=== PATIENT | male | born 1970 ===

== ENCOUNTER 2018-05-04 07:29 | Inpatient (IN) | payer OTHER ==
[2018-05-04] MEDS ORDERED: Sodium Chloride 0.9% 500 ML IV STA (08:27)
--- NOTE | 2018-05-04 08:30 | ED PDOC ---
HPI: Back Time Seen by Provider: 05/04/18 07:32 Chief Complaint (Nursing): Back Pain Chief Complaint (Provider): Back pain History Per: Patient History/Exam Limitations: no limitations Onset/Duration Of Symptoms: Days (weeks) Additional Complaint(s): Pt. with upper back pain. Not getting better so came to the ER for further evaluation. Pt. has no numbness, tingles. Has no abd pain. Past Medical History Reviewed: Nursing Documentation, Vital Signs Vital Signs: Last Vital Signs Temp 97.9 F 05/04/18 07:34 Pulse 66 05/04/18 07:34 Resp 16 05/04/18 07:34 BP 113/69 05/04/18 07:34 Pulse Ox 99 05/04/18 07:34 - Medical History PMH: Anxiety, Back Problems - Surgical History Surgical History: Back Surgery - Family History Family History: States: Unknown Family Hx - Allergies Allergies/Adverse Reactions: Allergies Allergy/AdvReac Type Severity Reaction Status Date / Time No Known Allergies Allergy Verified 05/04/18 07:46 Review of Systems ROS Statement: Except As Marked, All Systems Reviewed And Found Negative Musculoskeletal: Positive for: Back Pain Physical Exam - Reviewed Nursing Documentation Reviewed: Yes Vital Signs Reviewed: Yes - Physical Exam Appears: Positive for: Non-toxic, No Acute Distress Head Exam: Positive for: ATRAUMATIC, NORMAL INSPECTION, NORMOCEPHALIC Skin: Positive for: Normal Color, Warm, DRY Eye Exam: Positive for: EOMI, Normal appearance, PERRL ENT: Positive for: Normal ENT Inspection Neck: Positive for: Normal, Painless ROM Cardiovascular/Chest: Positive for: Regular Rate, Rhythm Respiratory: Positive for: CNT, Normal Breath Sounds Gastrointestinal/Abdominal: Positive for: Normal Exam, Soft. Negative for: Tenderness Back: Positive for: Other (upper and mid back tender pulp drier mild). Negative for: L CVA Tenderness, R CVA Tenderness Extremity: Positive for: Normal ROM Neurologic/Psych: Positive for: Alert, Oriented - ECG O2 Sat by Pulse Oximetry: 99 Pulse Ox Interpretation: Normal - Progress ED Course And Treament: 832: Spoke with Dr. Ponce. Will admit. Stable. Disposition - Clinical Impression Clinical Impression: Back pain - Patient ED Disposition Is Patient to be Admitted: Yes - Disposition Disposition Time: 08:33 Condition: FAIR - Pt Status Changed To: Hospital Disposition Of: Inpatient - Admit Certification Admit to Inpatient:: After my assessment, the patient will require hospitalization for at least two midnights. This is because of the severity of symptoms shown, intensity of services needed, and/or the medical risk in this patient being treated as an outpatient. - POA Present On Arrival: None
[2018-05-04 09:22] LABS: BASO % 0.7 % (0.0-2.0); EOS # 0.1 K/uL (0.0-0.7); EOS % 2.8 % (0.0-4.0); HEMOGLOBIN 12.1 g/dL (12.0-18.0); LYMPH # 1.4 K/uL (1.0-4.3); LYMPH % 34.1 % (20.0-40.0); MEAN CELL VOLUME 94.9 fl (80.0-94.0); MEAN CORPUSCULAR HEMOGLOBIN 31.8 pg (27.0-31.0); MEAN CORPUSCULAR HGB CONC 33.5 g/dL (33.0-37.0); MEAN PLATELET VOLUME 8.7 fl (7.2-11.7); MONO # 0.4 K/uL (0.0-0.8); MONO % 9.8 % (0.0-10.0); NEUT # 2.2 K/uL (1.8-7.0); NEUT % 52.6 % (50.0-75.0); NRBC % 0.1 % (0.0-0.0); RBC 3.81 Mil/uL (4.40-5.90); RED CELL DISTRIBUTION WIDTH 13.7 % (11.5-14.5); WHITE BLOOD COUNT 4.2 K/uL (4.8-10.8)
[2018-05-04 09:28] LABS: ALB/GLOB RATIO 1.5 (1.0-2.1); ALBUMIN 4.1 g/dL (3.5-5.0); ALT/SGPT 22 U/L (21-72); AST/SGOT 14 U/L (17-59); BLOOD UREA NITROGEN 8 mg/dl (9-20); CALCIUM 8.9 mg/dL (8.4-10.2); GFR NON-AFRICAN AMERICAN > 60
[2018-05-04 10:35] LABS: PARTIAL THROMBOPLASTIN TIME 32.5 Seconds (25.6-37.1); PROTHROMBIN TIME 11.5 Seconds (9.8-13.1)
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
--- NOTE | 2018-05-04 12:57 | RAD ---
Date of service: 05/04/2018 HISTORY: Back pain COMPARISON: No prior. FINDINGS: LUNGS: No active pulmonary disease. PLEURA: No significant pleural effusion identified, no pneumothorax apparent. CARDIOVASCULAR: No atherosclerotic calcification present Normal. OSSEOUS STRUCTURES: No significant abnormalities. VISUALIZED UPPER ABDOMEN: Normal. OTHER FINDINGS: None. IMPRESSION: No active disease.
[2018-05-04] MEDS: Oxycodone/Acetaminophen 5/325 mg Tab PO PRN ×2 (18:04→22:48)
--- NOTE | 2018-05-04 20:30 | CP.PCM.CON ---
History of Present Illness - History of Present Illness History of Present Illness: I was asked to evaluate patient by Dr Ponce. Patient is a 47 year old male with HTN CAd with stent palcement in 2015 who has spinal stenosis. he presents for back surgery. He denies chest pain or dyspnea. Review of Systems - Constitutional Constitutional: absent: As Per HPI, Anorexia, Chills, Daytime Sleepiness, Excessive Sweating, Fatigue, Fever, Frequent Falls, Headache, Increased Appetite, Lethargy, Malaise, Night Sweats, Snoring, Sleep Apnea, Weight Gain, Weight Loss, Weakness, Other - EENT Eyes: absent: As Per HPI, Blind Spots, Blurred Vision, Change in Vision, Decreased Night Vision, Diplopia, Discharge, Dry Eye, Exophthalmos, Floaters, Irritation, Itchy Eyes, Loss of Peripheral Vision, Pain, Photophobia, Requires Corrective Lenses, Sees Flashes, Spots in Vision, Tunnel Vision, Other Visual Disturbances, Loss of Vision, Other Ears: absent: As Per HPI, Decreased Hearing, Ear Discharge, Ear Pain, Tinnitus, Abnormal Hearing, Disequilibrium, Dizziness, Other Nose/Mouth/Throat: absent: As Per HPI, Epistaxis, Nasal Congestion, Nasal Discharge, Nasal Obstruction, Nasal Trauma, Nose Pain, Post Nasal Drip, Sinus Pain, Sinus Pressure, Bleeding Gums, Change in Voice, Dental Pain, Dry Mouth, Dysphagia, Halitosis, Hoarsness, Lip Swelling, Mouth Lesions, Mouth Pain, Odynophagia, Sore Throat, Throat Swelling, Tongue Swelling, Facial Pain, Neck Pain, Neck Mass, Other - Cardiovascular Cardiovascular: absent: As Per HPI, Acrocyanosis, Chest Pain, Chest Pain at Rest, Chest Pain with Activity, Claudication, Diaphoresis, Dyspnea, Dyspnea on Exertion, Edema, Irregular Heart Rhythm, Pain Radiating to Arm/Neck/Jaw, Leg Edema, Leg Ulcers, Lightheadedness, Orthopnea, Palpitations, Paroxysmal Nocturnal Dyspnea, Pedal Edema, Radiating Pain, Rapid Heart Rate, Slow Heart Rate, Syncope, Other - Respiratory Respiratory: absent: As Per HPI, Cough, Dyspnea, Hemoptysis, Dyspnea on Exertion, Wheezing, Snoring, Stridor, Pain on Inspiration, Chest Congestion, Excessive Mucous Production, Change in Mucous Color, Pain with Coughing, Other - Gastrointestinal Gastrointestinal: absent: As Per HPI, Abdominal Pain, Belching, Bloating, Change in Bowel Habits, Change in Stool Character, Coffee Ground Emesis, Constipation, Cramping, Diarrhea, Dyspepsia, Dysphagia, Early Satiety, Excessive Flatus, Fecal Incontinence, Heartburn, Hematemesis, Hematochezia, Loose Stools, Melena, Nausea, Odynophagia, Temesmus, Vomiting, Other - Genitourinary Genitourinary: absent: As Per HPI, Change in Urinary Stream, Difficulty Urinat ing, Dysuria, Flank Pain, Hematuria, Pyuria, Nocturia, Urinary Incontinence, Urinary Frequency, Urinary Hesitance, Urinary Urgency, Voiding Freq/Small Amts, Freq UTI, Hx Renal/Bladder Calculi, Hx /Renal Surgery, Bladder Distension, Other - Musculoskeletal Musculoskeletal: Back Pain - Integumentary Integumentary: absent: As Per HPI, Acne, Alopecia, Bleeding Lesions, Change in Hair, Change in Nails, Change in Pigmentation, Changing Lesions, Dry Skin, Erythema, Furuncle, Hirsutism, Lesions, New Lesions, Non-Healing Lesions, Photosensitivity, Pruritus, Rash, Skin Pain, Skin Ulcer, Sores, Striae, Swelling, Unusual Bruising, Wounds, Jaundice, Other - Neurological Neurological: absent: As Per HPI, Abnormal Gait, Abnormal Hearing, Abnormal Movements, Abnormal Speech, Behavioral Changes, Burning Sensations, Confusion, Convulsions, Disequilibrium, Dizziness, Numbness, Focal Weakness, Frequent Falls, Headaches, Lack of Coordination, Loss of Vision, Memory Loss, Paresthesias, Radicular Pain, Restless Legs, Sensory Deficit, Syncope, Tingling, Tremor, Vertigo, Weakness, Other Visual Disturbances, Other - Psychiatric Psychiatric: absent: As Per HPI, Abnormal Sleep Pattern, Anhedonia, Anxiety, Auditory Hallucinations, Behavioral Changes, Change in Appetite, Change in Libido, Confusion, Depression, Difficulty Concentrating, Hallucinations, Homicidal Ideation, Hopelessness, Irritability, Memory Loss, Mood Swings, Panic Attacks, Paranoia, Suicidal Ideation, Visual Hallucinations, Tactile Hallucinations, Other - Endocrine Endocrine: absent: As Per HPI, Change in Body Appearance, Change in Libido, Cold Intolorance, Deepening of Voice, Excessive Sweating, Fatigue, Flushing, Heat Intolorance, Increase in Ring/Shoe/Hat Size, Palpitations, Polydipsia, Polyphagia, Polyuria, Other - Hematologic/Lymphatic Hematologic: absent: As Per HPI, Easy Bleeding, Easy Bruising, Lymphadenopathy, Other Past Patient History - Infectious Disease Hx of Infectious Diseases: None - Past Social History Smoking Status: Never Smoked - CARDIAC Hx Cardiac Disorders: Yes - MUSCULOSKELETAL/RHEUMATOLOGICAL Hx Musculoskeletal Disorders: Yes - PSYCHIATRIC Hx Psychophysiologic Disorder: Yes - SURGICAL HISTORY Hx Orthopedic Surgery: Yes Other/Comment: 2 stents, rt. ankle sx. w/ screws - ANESTHESIA Hx Anesthesia: Yes Hx Anesthesia Reactions: No Hx Malignant Hyperthermia: No Has any member of the family had a problem w/ anesthesia?: No Meds Allergies/Adverse Reactions: Allergies Allergy/AdvReac Type Severity Reaction Status Date / Time No Known Allergies Allergy Verified 05/04/18 07:46 - Medications Medications: Current Medications Acetaminophen (Tylenol 325mg Tab) 650 mg PO Q6 PRN PRN Reason: Pain, Mild (1-3) Clonazepam (Klonopin) 2 mg PO BID EUN Last Admin: 05/04/18 18:02 Dose: 2 mg Ketorolac Tromethamine (Toradol) 30 mg IVP Q6 PRN PRN Reason: Pain, moderate (4-7) Last Admin: 05/04/18 14:28 Dose: 30 mg Lorazepam (Ativan) 1 mg IVP ONCE PRN PRN Reason: Anxiety Last Admin: 05/04/18 14:25 Dose: 1 mg Oxycodone/Acetaminophen (Percocet 5/325 Mg Tab) 1 tab PO Q4 PRN PRN Reason: Pain, severe (8-10) Stop: 05/07/18 12:53 Last Admin: 05/04/18 18:04 Dose: 1 tab Physical Exam - Constitutional Appears: Non-toxic - Head Exam Head Exam: NORMAL INSPECTION - Eye Exam Eye Exam: Normal appearance - ENT Exam ENT Exam: Mucous Membranes Moist - Neck Exam Neck exam: Positive for: Full Rom - Respiratory Exam Respiratory Exam: NORMAL BREATHING PATTERN - Cardiovascular Exam Cardiovascular Exam: REGULAR RHYTHM - GI/Abdominal Exam GI & Abdominal Exam: Normal Bowel Sounds - Rectal Exam Rectal Exam: Deferred - Extremities Exam Extremities exam: Negative for: pedal edema - Back Exam Back exam: NORMAL INSPECTION - Neurological Exam Neurological exam: Alert, Oriented x3 - Psychiatric Exam Psychiatric exam: Normal Affect - Skin Skin Exam: Normal Color Results - Vital Signs Recent Vital Signs: Last Vital Signs Temp 98.2 F 05/04/18 17:00 Pulse 61 05/04/18 17:00 Resp 18 05/04/18 17:00 BP 122/81 05/04/18 17:00 Pulse Ox 97 05/04/18 17:00 - Labs Result Diagrams: 05/04/18 08:52 05/04/18 08:52 Labs: Laboratory Results - last 24 hr 05/04/18 05/04/18 05/04/18 08:52 08:52 08:52 WBC 4.2 L RBC 3.81 L Hgb 12.1 Hct 36.1 MCV 94.9 H MCH 31.8 H MCHC 33.5 RDW 13.7 Plt Count 190 MPV 8.7 Neut % (Auto) 52.6 Lymph % (Auto) 34.1 [place] % (Auto) 9.8 Eos % (Auto) 2.8 Baso % (Auto) 0.7 Neut # (Auto) 2.2 Lymph # (Auto) 1.4 [place] # (Auto) 0.4 Eos # (Auto) 0.1 Baso # (Auto) 0.0 PT 11.5 INR 1.0 APTT 32.5 Sodium 140 Potassium 4.0 Chloride 106 Carbon Dioxide 28 Anion Gap 10 BUN 8 L Creatinine 0.7 L Est GFR ( Amer) > 60 Est GFR (Non-Af Amer) > 60 Random Glucose 108 Calcium 8.9 Total Bilirubin 0.2 AST 14 L ALT 22 Alkaline Phosphatase 57 Troponin I < 0.0120 Total Protein 6.8 Albumin 4.1 Globulin 2.7 Albumin/Globulin Ratio 1.5 - EKG Data EKG Interpreted by: Myself EKG shows normal: Sinus rhythm Assessment & Plan (1) Preoperative cardiovascular examination Assessment and Plan: no current angina or heart failure. normal EKG. No cardiovascular contraindication to the planned surgery. Status: Acute (2) CAD (coronary artery disease) Assessment and Plan: no current angina or sichemia. recommend aspirin postoperatively when feasible from a surgical standpoint. Status: Acute
[2018-05-05 06:32] LABS: HEMOGLOBIN 11.7 g/dL (12.0-18.0); MEAN CELL VOLUME 92.7 fl (80.0-94.0); MEAN CORPUSCULAR HEMOGLOBIN 30.9 pg (27.0-31.0); MEAN CORPUSCULAR HGB CONC 33.4 g/dL (33.0-37.0); RBC 3.79 Mil/uL (4.40-5.90); RED CELL DISTRIBUTION WIDTH 14.2 % (11.5-14.5); WHITE BLOOD COUNT 4.1 K/uL (4.8-10.8)
[2018-05-05] MEDS ORDERED: Midazolam 2 MG/2 ML VIAL ONE (06:50)
[2018-05-05] MEDS ORDERED: Propofol 10 mg/ml Inj (20 ML) ONE (06:50)
[2018-05-05] MEDS ORDERED: Neostigmine 1:1000 (1 mg/ml) Inj ONE (06:51)
[2018-05-05] MEDS ORDERED: Lidocaine 4% (Laryng-O-Jet) Kit MM ONE (06:51)
[2018-05-05] MEDS ORDERED: Succinylcholine 200 mg/10 ml Inj IV ONE (06:51)
[2018-05-05] MEDS ORDERED: Rocuronium 10 mg/ml (5 ml) ONE (06:51)
[2018-05-05] MEDS ORDERED: Lidocaine 1% 5ml Abboject ONE (06:51)
[2018-05-05 06:52] LABS: BLOOD UREA NITROGEN 8 mg/dl (9-20); CALCIUM 8.9 mg/dL (8.4-10.2); GFR NON-AFRICAN AMERICAN > 60
--- NOTE | 2018-05-05 07:02 | CARD ---
APPROVED REPORT Date of service: 05/04/2018 EKG Measurement Heart [id number] <Conclusion> Sinus bradycardia Otherwise normal ECG
[2018-05-05] MEDS ORDERED: Bupivacaine HCl 0.25% PF (30 ml) Inj ONE (07:22)
[2018-05-05] MEDS ORDERED: Lidocaine 1% w Epi 1:100,000 Inj ONE (07:22)
[2018-05-05] MEDS ORDERED: Bacitracin Ointment 30 GM TUBE ONE (07:22)
[2018-05-05] MEDS ORDERED: Absorbable Gelatin Sponge Size 12-7 ONE (07:22)
[2018-05-05] MEDS ORDERED: Thrombin Topical 5,000 Int Units Spray Kit ONE (07:23)
--- NOTE | 2018-05-05 07:26 | CP.PCM.CON ---
History of Present Illness - History of Present Illness History of Present Illness: Neurosurgical consult: Dr. Saavedra Patient is a 47 y/o male c/o severe lower back pain which began many years ago but has significantly worsened over the past few weeks. He denies any recent trauma or injuries. His pain has negatively affected his daily activities including sitting and walking. He has tried and failed conservative management with PT and oral medications. He has history of L5-S1 lumbar laminectomy with fusion in the past. He states the pain is sharp, intermittent and rated a 8/10 on average. The pain is associated with radiating pain, numbness and tingling traveling down both lower extremities, greater in the left. He denies any bowel/bladder dysfunction and saddle paresthesias. He also denies CP/SOB/N/V/ D/fever/melena/dysuria. Review of Systems - Review of Systems All systems: reviewed and no additional remarkable complaints except Review of Systems: as per HPI Past Patient History - Infectious Disease Hx of Infectious Diseases: None - Past Medical History & Family History Past Family History: Reviewed and not pertinent - Past Social History Smoking Status: Never Smoked Alcohol: None Drugs: Cannabis - CARDIAC Hx Cardiac Disorders: Yes - PULMONARY Hx Respiratory Disorders: No - NEUROLOGICAL Hx Neurological Disorder: No - HEENT Hx HEENT Problems: No - RENAL Hx Chronic Kidney Disease: No - ENDOCRINE/METABOLIC Hx Endocrine Disorders: No - HEMATOLOGICAL/ONCOLOGICAL Hx Blood Disorders: No - INTEGUMENTARY Hx Dermatological Problems: No - MUSCULOSKELETAL/RHEUMATOLOGICAL Hx Musculoskeletal Disorders: Yes - GASTROINTESTINAL Hx Gastrointestinal Disorders: No - GENITOURINARY/GYNECOLOGICAL Hx Genitourinary Disorders: No - PSYCHIATRIC Hx Psychophysiologic Disorder: Yes - SURGICAL HISTORY Hx Orthopedic Surgery: Yes Other/Comment: 2 cardiac stents, rt. ankle ORIF, lumbar laminectomy and fusion - ANESTHESIA Hx Anesthesia: Yes Hx Anesthesia Reactions: No Hx Malignant Hyperthermia: No Has any member of the family had a problem w/ anesthesia?: No Meds Allergies/Adverse Reactions: Allergies Allergy/AdvReac Type Severity Reaction Status Date / Time No Known Allergies Allergy Verified 05/04/18 07:46 - Medications Medications: Current Medications Acetaminophen (Tylenol 325mg Tab) 650 mg PO Q6 PRN PRN Reason: Pain, Mild (1-3) Clonazepam (Klonopin) 2 mg PO BID EUN Last Admin: 05/04/18 18:02 Dose: 2 mg Ketorolac Tromethamine (Toradol) 30 mg IVP Q6 PRN PRN Reason: Pain, moderate (4-7) Last Admin: 05/05/18 05:00 Dose: 30 mg Lorazepam (Ativan) 1 mg IVP ONCE PRN PRN Reason: Anxiety Last Admin: 05/04/18 14:25 Dose: 1 mg Oxycodone/Acetaminophen (Percocet 5/325 Mg Tab) 1 tab PO Q4 PRN PRN Reason: Pain, severe (8-10) Stop: 05/07/18 12:53 Last Admin: 05/04/18 22:48 Dose: 1 tab Physical Exam - Constitutional Appears: Well, No Acute Distress - Head Exam Head Exam: ATRAUMATIC, NORMOCEPHALIC - Eye Exam Eye Exam: EOMI, Normal appearance, PERRL - ENT Exam ENT Exam: Mucous Membranes Moist - Respiratory Exam Respiratory Exam: NORMAL BREATHING PATTERN - Cardiovascular Exam Cardiovascular Exam: +S1, +S2 - GI/Abdominal Exam GI & Abdominal Exam: Soft. absent: Tenderness - Back Exam Additional comments: Old midline scar well healed midline and bilateral paraspinal tenderness sensation intact SP/DP?TN motor intact EHL/FHL/TA/G/HS/Q neg clonus + SLR b/l - Neurological Exam Neurological exam: Alert, Oriented x3 - Psychiatric Exam Psychiatric exam: Normal Affect, Normal Mood - Skin Skin Exam: Normal Color, Warm Results - Vital Signs Recent Vital Signs: Last Vital Signs Temp 98 F 05/05/18 00:29 Pulse 60 05/05/18 00:29 Resp 18 05/05/18 00:29 BP 130/77 05/05/18 00:29 Pulse Ox 100 05/05/18 00:29 - Labs Result Diagrams: 05/05/18 05:50 05/05/18 05:50 Labs: Laboratory Results - last 24 hr 05/04/18 05/04/18 05/04/18 08:52 08:52 08:52 WBC 4.2 L RBC 3.81 L Hgb 12.1 Hct 36.1 MCV 94.9 H MCH 31.8 H MCHC 33.5 RDW 13.7 Plt Count 190 MPV 8.7 Neut % (Auto) 52.6 Lymph % (Auto) 34.1 [place] % (Auto) 9.8 Eos % (Auto) 2.8 Baso % (Auto) 0.7 Neut # (Auto) 2.2 Lymph # (Auto) 1.4 [place] # (Auto) 0.4 Eos # (Auto) 0.1 Baso # (Auto) 0.0 PT 11.5 INR 1.0 APTT 32.5 Sodium 140 Potassium 4.0 Chloride 106 Carbon Dioxide 28 Anion Gap 10 BUN 8 L Creatinine 0.7 L Est GFR ( Amer) > 60 Est GFR (Non-Af Amer) > 60 Random Glucose 108 Calcium 8.9 Total Bilirubin 0.2 AST 14 L ALT 22 Alkaline Phosphatase 57 Troponin I < 0.0120 Total Protein 6.8 Albumin 4.1 Globulin 2.7 Albumin/Globulin Ratio 1.5 Blood Type Antibody Screen BBK History Checked 05/05/18 05/05/18 05/05/18 05:50 05:50 05:50 WBC 4.1 L RBC 3.79 L Hgb 11.7 L Hct 35.1 MCV 92.7 D MCH 30.9 MCHC 33.4 RDW 14.2 Plt Count 183 MPV Neut % (Auto) Lymph % (Auto) [place] % (Auto) Eos % (Auto) Baso % (Auto) Neut # (Auto) Lymph # (Auto) [place] # (Auto) Eos # (Auto) Baso # (Auto) PT INR APTT Sodium 141 Potassium 4.9 Chloride 108 H Carbon Dioxide 29 Anion Gap 9 L BUN 8 L Creatinine 0.8 Est GFR ( Amer) > 60 Est GFR (Non-Af Amer) > 60 Random Glucose 90 Calcium 8.9 Total Bilirubin AST ALT Alkaline Phosphatase Troponin I Total Protein Albumin Globulin Albumin/Globulin Ratio Blood Type A POSITIVE Antibody Screen Negative BBK History Checked No verified bt Assessment & Plan (1) Lumbar spondylosis Assessment and Plan: -Dr. Saavedra recommends L4-S1 lumbar laminectomy and fusion in OR today -Risks/benefits/alternatives were d/w patient who understands and agrees to latha flores with procedure -NPO -above d/w Dr. Saavedra in agreement Status: Acute
[2018-05-05] MEDS ORDERED: Lactated Ringer's 1,000 ML IV ONE (07:50)
[2018-05-05] MEDS ORDERED: Sodium Chloride 0.9% 10 ML IV ONE (08:29)
[2018-05-05] MEDS ORDERED: Absorbable Gelatin Sponge Size 12-7 TP ONE (08:45)
[2018-05-05] MEDS ORDERED: Thrombin Topical 5,000 Int Units Spray Kit TOP ONE (08:45)
[2018-05-05] MEDS ORDERED: HEMOSTATIC MATRIX 10 ML DIS.NEEDLE TOP ONE (09:25)
[2018-05-05] MEDS ORDERED: Bupivacaine 0.5% Inj(30mL) IJ ONE ×2 (09:46→09:55)
--- NOTE | 2018-05-05 10:11 | PCM.SURG1 ---
Surgeon's Initial Post Op Note - Surgeon's Notes Surgeon: Carrington Saavedra MD Wagon Washer: Tk Ruiz PA-C Type of Anesthesia: General Endo Anesthesia Administered By: Jigar RUBIO Pre-Operative Diagnosis: Lumbar spondylosis Operative Findings: L4-L5 lumbar spondylosis Post-Operative Diagnosis: as above Operation Performed: Re-exploration lumbar laminectomy and fusion, L4-S1 lumbar laminectomy and instrumental fusion Specimen/Specimens Removed: none Estimated Blood Loss: EBL {In ML}: 20 Blood Products Given: N/A Drains Used: Glenn Smith (x 2) Post-Op Condition: Good Date of Surgery/Procedure: 05/05/18 Time of Surgery/Procedure: 08:07
[2018-05-05] MEDS: Lactated Ringer's 1,000 ML IV SCH ×3 (12:50→20:30)
[2018-05-05] MEDS: ceFAZolin 1 GM in Sodium Chloride 0.9% 100 ML IVPB SCH (16:32)
--- NOTE | 2018-05-05 18:31 | CP.PCM.PN ---
<Yehuda Lincoln - Last Filed: 05/06/18 14:16> Subjective - Date & Time of Evaluation Date of Evaluation: 05/06/18 Time of Evaluation: 14:00 - Subjective Subjective: PT seen and examined after procedure in the afternoon. Alert and oriented, no acute distress, noted to have 2 J drains. Denies pain. Objective - Vital Signs/Intake and Output Vital Signs (last 24 hours): Temp Pulse Resp BP Pulse Ox 98 F 96 H 18 122/81 99 05/05/18 16:50 05/05/18 16:50 05/05/18 16:50 05/05/18 16:50 05/05/18 16:50 Intake and Output: 05/05/18 05/05/18 06:59 18:59 Intake Total 1100 Output Total 330 Balance 770 - Medications Medications: Current Medications Acetaminophen (Tylenol 325mg Tab) 650 mg PO Q6 PRN PRN Reason: Pain, Mild (1-3) Clonazepam (Klonopin) 2 mg PO BID [facility] Last Admin: 05/05/18 16:19 Dose: Not Given Cyclobenzaprine HCl (Flexeril) 10 mg PO Q8 PRN PRN Reason: Muscle spasm Docusate Sodium (Colace) 100 mg PO BID [facility] Last Admin: 05/05/18 16:20 Dose: 100 mg Hydromorphone HCl (Dilaudid) 1 mg IVP Q3 PRN PRN Reason: Pain, severe (8-10) Last Admin: 05/05/18 16:24 Dose: 1 mg Cefazolin Sodium 1 gm/ Sodium (Chloride) 100 mls @ 100 mls/hr IVPB Q8 [facility]; Protocol Stop: 05/07/18 17:01 Last Admin: 05/05/18 16:32 Dose: 100 mls/hr Lactated Ringer's (Lactated Ringer's) 1,000 mls @ 100 mls/hr IV .Q10H [facility] Last Admin: 05/05/18 12:50 Dose: 100 mls Lactated Ringer's (Lactated Ringer's) 1,000 mls @ 100 mls/hr IV .Q10H [facility] Ketorolac Tromethamine (Toradol) 30 mg IVP Q6 PRN PRN Reason: Pain, moderate (4-7) Last Admin: 05/05/18 05:00 Dose: 30 mg Lorazepam (Ativan) 1 mg IVP ONCE PRN PRN Reason: Anxiety Last Admin: 05/04/18 14:25 Dose: 1 mg Ondansetron HCl (Zofran Inj) 4 mg IVP ONCE PRN PRN Reason: Nausea/Vomiting Oxycodone/Acetaminophen (Percocet 5/325 Mg Tab) 1 tab PO Q4 PRN PRN Reason: Pain, severe (8-10) Stop: 05/07/18 12:53 Last Admin: 05/04/18 22:48 Dose: 1 tab Oxycodone/Acetaminophen (Percocet 5/325 Mg Tab) 2 tab PO Q4 PRN PRN Reason: Pain, moderate (4-7) Stop: 05/08/18 10:15 - Labs Labs: 05/05/18 05:50 05/05/18 05:50 PT 11.5 Seconds (9.8-13.1) 05/04/18 08:52 INR 1.0 05/04/18 08:52 APTT 32.5 Seconds (25.6-37.1) 05/04/18 08:52 - Constitutional Appears: No Acute Distress - Head Exam Head Exam: NORMAL INSPECTION - Eye Exam Eye Exam: Normal appearance - ENT Exam ENT Exam: Mucous Membranes Moist - Respiratory Exam Respiratory Exam: Clear to Ausculation Bilateral - Cardiovascular Exam Cardiovascular Exam: REGULAR RHYTHM, +S1, +S2 - GI/Abdominal Exam Additional comments: Abdominal binder - Extremities Exam Extremities Exam: Normal Capillary Refill. absent: Calf Tenderness, Pedal Edema - Back Exam Additional comments: 2 J drains with serous sangineous blood - Neurological Exam Neurological Exam: Alert Neuro motor strength exam: Left Upper Extremity: 5, Right Upper Extremity: 5, Left Lower Extremity: 5, Right Lower Extremity: 5 Additional comments: sensation in tact - Psychiatric Exam Psychiatric exam: Normal Affect - Skin Skin Exam: Normal Color Assessment and Plan - Assessment and Plan (Free Text) Assessment: Pt is a 47 y/o male with hx of spinal fractures presenting for intractable back pain, S/P laminectomy POD 0. Hemodynamically stable post operatively. Pain managment as ordered F/U ortho's recommendations. Discussed case with Dr. Ponce <Bronson Ponce - Last Filed: 05/06/18 17:00> Objective - Vital Signs/Intake and Output Vital Signs (last 24 hours): Temp Pulse Resp BP Pulse Ox 98.2 F 82 18 129/77 98 05/06/18 13:00 05/06/18 13:00 05/06/18 13:00 05/06/18 13:00 05/06/18 13:00 - Medications Medications: Current Medications Acetaminophen (Tylenol 325mg Tab) 650 mg PO Q6 PRN PRN Reason: Pain, Mild (1-3) Clonazepam (Klonopin) 2 mg PO Q12 [facility] Last Admin: 05/06/18 08:03 Dose: 2 mg Cyclobenzaprine HCl (Flexeril) 10 mg PO Q8 PRN PRN Reason: Muscle spasm Docusate Sodium (Colace) 100 mg PO BID [facility] Last Admin: 05/06/18 08:01 Dose: 100 mg Gabapentin (Neurontin) 100 mg PO TID [facility] Hydromorphone HCl (Dilaudid 0.2 Mg/Ml Photographer Lithographic) 6 mg IV DAILY [facility]; Protocol Last Admin: 05/06/18 12:48 Dose: 6 mg Cefazolin Sodium 1 gm/ Sodium (Chloride) 100 mls @ 100 mls/hr IVPB Q8 [facility]; Pro tocol Stop: 05/07/18 17:01 Last Admin: 05/06/18 08:00 Dose: 100 mls/hr Lactated Ringer's (Lactated Ringer's) 1,000 mls @ 100 mls/hr IV .Q10H [facility] Last Admin: 05/06/18 06:25 Dose: Not Given Lactated Ringer's (Lactated Ringer's) 1,000 mls @ 100 mls/hr IV .Q10H [facility] Last Admin: 05/06/18 06:37 Dose: Not Given Ketorolac Tromethamine (Toradol) 30 mg IVP Q6 PRN PRN Reason: Pain, moderate (4-7) Last Admin: 05/05/18 05:00 Dose: 30 mg Lorazepam (Ativan) 1 mg IVP ONCE PRN PRN Reason: Anxiety Last Admin: 05/04/18 14:25 Dose: 1 mg Ondansetron HCl (Zofran Inj) 4 mg IVP ONCE PRN PRN Reason: Nausea/Vomiting Oxycodone HCl (Oxycontin Extended Release Tab) 20 mg PO TID [facility] Last Admin: 05/06/18 12:47 Dose: 20 mg Oxycodone/Acetaminophen (Percocet 5/325 Mg Tab) 1 tab PO Q4 PRN PRN Reason: Pain, severe (8-10) Stop: 05/07/18 12:53 Last Admin: 05/06/18 01:52 Dose: 1 tab Oxycodone/Acetaminophen (Percocet 5/325 Mg Tab) 2 tab PO Q4 PRN PRN Reason: Pain, moderate (4-7) Stop: 05/08/18 10:15 - Labs Labs: 05/06/18 05:50 05/06/18 05:50 PT 11.5 Seconds (9.8-13.1) 05/04/18 08:52 INR 1.0 05/04/18 08:52 APTT 32.5 Seconds (25.6-37.1) 05/04/18 08:52 Attending/Attestation - Attestation I have personally seen and examined this patient.: Yes I have fully participated in the care of the patient.: Yes I have reviewed all pertinent clinical information, including history, physical exam and plan: Yes
[2018-05-06] MEDS: ceFAZolin 1 GM in Sodium Chloride 0.9% 100 ML IVPB SCH ×3 (00:15→17:00)
[2018-05-06] MEDS: Oxycodone/Acetaminophen 5/325 mg Tab PO PRN ×2 (01:52→20:17)
--- NOTE | 2018-05-06 03:45 | VAS ---
DATE: 05/05/2018 PREOPERATIVE DIAGNOSIS: Lumbar spondylosis. POSTOPERATIVE DIAGNOSIS: Lumbar spondylosis. PROCEDURES PERFORMED: Re-exploration of lumbar laminectomy fusion at L5 to S1 and stabilization of the lumbar spine from L4 to S1, laminectomy at L4-L5, and L4-S1 posterolateral fusion. Fluoroscopy has been used. SURGEON: Carrington Saavedra MD ELECTRIC RANGE ASSEMBLER: Tk Ruiz, physician geriatric assistant, who helped me perform the surgery, stayed throughout the case. ANESTHESIA: General endotracheal anesthesia. DESCRIPTION OF PROCEDURE AND FINDINGS: The patient was brought to the operating room and after general endotracheal anesthesia, placed in the prone position on a Glenn table. Care was taken to protect all the pressure points. Back of the lumbar area was thoroughly prepped and draped in standard sterile manner after marking the skin incision over the previous lumbar laminectomy skin incision. The skin has been incised. Bleeding skin has been controlled with bipolar spout liner. Using a Bovie spout liner, paraspinal muscles had been detached from the attachment of the spinous process and lamina of the L4. At this point, the previously placed stabilization system of [employer] Legacy System has been identified. The cap nuts had been removed and the titanium bhumi has been removed and the screws have been left in place at 5 and 1. By using a traditional landmark, point of entry has been noted at L4 screw by using a drill. The pedicle has been entered. Polyaxial titanium screws of [employer] Legacy System had been placed. The titanium rods have been placed. The cap nuts have been used in order to secure them. All this has been under the fluoroscopy. At this point by using Leksell rongeur, the spinous process of L4 had been removed. By using a high-speed drill, the lamina of L4 had been drilled to actual thickness. By using a fine Kerrison punch, thinned out the lamina and medial part of the facets, ligamentum flavum has been removed decompressing this area. Lateral aspect of the facet joint and transverse process had been decorticated. Demineralized bone was placed in the area achieving a posterolateral fusion. After that, hemostasis was best achieved. Glenn drain was placed in the wound and brought out through a separate stab neck skin incision. Muscles and fascia were closed with 1 Vicryl, subcutaneous tissue with 3-0 Vicryl, and the skin has been with intradermal 3-0 Vicryl stitches. The patient tolerated the procedure. Carrington Saavedra MD
[2018-05-06 06:09] LABS: HEMOGLOBIN 10.6 g/dL (12.0-18.0); MEAN CELL VOLUME 94.5 fl (80.0-94.0); MEAN CORPUSCULAR HEMOGLOBIN 31.6 pg (27.0-31.0); MEAN CORPUSCULAR HGB CONC 33.5 g/dL (33.0-37.0); RBC 3.37 Mil/uL (4.40-5.90); RED CELL DISTRIBUTION WIDTH 14.3 % (11.5-14.5); WHITE BLOOD COUNT 6.4 K/uL (4.8-10.8)
[2018-05-06 06:16] LABS: BLOOD UREA NITROGEN 9 mg/dl (9-20); CALCIUM 8.5 mg/dL (8.4-10.2); GFR NON-AFRICAN AMERICAN > 60
[2018-05-06] MEDS: Lactated Ringer's 1,000 ML IV SCH ×4 (06:25→17:05)
--- NOTE | 2018-05-06 09:33 | CP.PCM.PN ---
Subjective - Date & Time of Evaluation Date of Evaluation: 05/06/18 Time of Evaluation: 08:00 - Subjective Subjective: Patient seen and examined at bedside in severe lower back pain uncontrolled with current pain regiment. Radicular symptoms have improved especially to LLE. Notes that drain bulbs leaked multiple times overnight. Denies CP/SOB/fever/BETHEA. Objective - Vital Signs/Intake and Output Vital Signs (last 24 hours): Temp Pulse Resp BP Pulse Ox 97.9 F 79 20 138/77 97 05/06/18 08:14 05/06/18 08:14 05/06/18 08:14 05/06/18 08:14 05/06/18 08:14 - Medications Medications: Current Medications Acetaminophen (Tylenol 325mg Tab) 650 mg PO Q6 PRN PRN Reason: Pain, Mild (1-3) Clonazepam (Klonopin) 2 mg PO Q12 [facility] Last Admin: 05/06/18 08:03 Dose: 2 mg Cyclobenzaprine HCl (Flexeril) 10 mg PO Q8 PRN PRN Reason: Muscle spasm Docusate Sodium (Colace) 100 mg PO BID [facility] Last Admin: 05/06/18 08:01 Dose: 100 mg Hydromorphone HCl (Dilaudid) 1 mg IVP Q3 PRN PRN Reason: Pain, severe (8-10) Last Admin: 05/06/18 07:58 Dose: 1 mg Cefazolin Sodium 1 gm/ Sodium (Chloride) 100 mls @ 100 mls/hr IVPB Q8 [facility]; P rotocol Stop: 05/07/18 17:01 Last Admin: 05/06/18 08:00 Dose: 100 mls/hr Lactated Ringer's (Lactated Ringer's) 1,000 mls @ 100 mls/hr IV .Q10H [facility] Last Admin: 05/06/18 06:25 Dose: Not Given Lactated Ringer's (Lactated Ringer's) 1,000 mls @ 100 mls/hr IV .Q10H [facility] Last Admin: 05/06/18 06:37 Dose: Not Given Ketorolac Tromethamine (Toradol) 30 mg IVP Q6 PRN PRN Reason: Pain, moderate (4-7) Last Admin: 05/05/18 05:00 Dose: 30 mg Lorazepam (Ativan) 1 mg IVP ONCE PRN PRN Reason: Anxiety Last Admin: 05/04/18 14:25 Dose: 1 mg Ondansetron HCl (Zofran Inj) 4 mg IVP ONCE PRN PRN Reason: Nausea/Vomiting Oxycodone/Acetaminophen (Percocet 5/325 Mg Tab) 1 tab PO Q4 PRN PRN Reason: Pain, severe (8-10) Stop: 05/07/18 12:53 Last Admin: 05/06/18 01:52 Dose: 1 tab Oxycodone/Acetaminophen (Percocet 5/325 Mg Tab) 2 tab PO Q4 PRN PRN Reason: Pain, moderate (4-7) Stop: 05/08/18 10:15 - Labs Labs: 05/06/18 05:50 05/06/18 05:50 PT 11.5 Seconds (9.8-13.1) 05/04/18 08:52 INR 1.0 05/04/18 08:52 APTT 32.5 Seconds (25.6-37.1) 05/04/18 08:52 - Back Exam Additional comments: Dressings with mild bloody drainage about drain sites bilateral drains with moderate bloody drainage ( L 80cc, R 25cc, although michelle ccurate due to leakage) mild tenderness about incision sensation intact b/l SP/DP/TN motor intact EHL/FHL/TA/G b/l neg clonus Assessment and Plan (1) Lumbar spondylosis Assessment & Plan: POD#1 s/p L4-S1 lumbar laminotomy and instrumental fusion -pain mgmt consult ordered -monitor drain output -PT/OT WBAT -abd binder -continue IV abx until drains removed -above d/w Dr. Saavedra in agreement Status: Acute
--- NOTE | 2018-05-06 11:47 | CP.PCM.CON ---
History of Present Illness - History of Present Illness History of Present Illness: 47yM POD lumbar laminectomy with fusion with acute postop pain. His pain is located in his back with minimal radiation to his legs. Pain is VAS 7-8/10, sharp intermittent pain which is worse with walking and better with rest and medications. He was taking oxycontin from a [place] surgeon for the past 6 months. He denies urinary incontinence. Asked to assist PMD with pain control. Past Patient History - Infectious Disease Hx of Infectious Diseases: None - Past Medical History & Family History Past Medical History?: Yes Past Family History: Reviewed and not pertinent (chronic back pain) - Past Social History Smoking Status: Never Smoked Alcohol: None Drugs: Cannabis - CARDIAC Hx Cardiac Disorders: Yes - PULMONARY Hx Respiratory Disorders: No - NEUROLOGICAL Hx Neurological Disorder: No - HEENT Hx HEENT Problems: No - RENAL Hx Chronic Kidney Disease: No - ENDOCRINE/METABOLIC Hx Endocrine Disorders: No - HEMATOLOGICAL/ONCOLOGICAL Hx Blood Disorders: No - INTEGUMENTARY Hx Dermatological Problems: No - MUSCULOSKELETAL/RHEUMATOLOGICAL Hx Musculoskeletal Disorders: Yes - GASTROINTESTINAL Hx Gastrointestinal Disorders: No - GENITOURINARY/GYNECOLOGICAL Hx Genitourinary Disorders: No - PSYCHIATRIC Hx Psychophysiologic Disorder: Yes - SURGICAL HISTORY Hx Orthopedic Surgery: Yes Other/Comment: 2 cardiac stents, rt. ankle ORIF, lumbar laminectomy and fusion - ANESTHESIA Hx Anesthesia: Yes Hx Anesthesia Reactions: No Hx Malignant Hyperthermia: No Has any member of the family had a problem w/ anesthesia?: No Meds Allergies/Adverse Reactions: Allergies Allergy/AdvReac Type Severity Reaction Status Date / Time No Known Allergies Allergy Verified 05/04/18 07:46 - Medications Medications: Current Medications Acetaminophen (Tylenol 325mg Tab) 650 mg PO Q6 PRN PRN Reason: Pain, Mild (1-3) Clonazepam (Klonopin) 2 mg PO Q12 [facility] Last Admin: 05/06/18 08:03 Dose: 2 mg Cyclobenzaprine HCl (Flexeril) 10 mg PO Q8 PRN PRN Reason: Muscle spasm Docusate Sodium (Colace) 100 mg PO BID [facility] Last Admin: 05/06/18 08:01 Dose: 100 mg Hydromorphone HCl (Dilaudid 0.2 Mg/Ml Web Marketing Intern) 6 mg IV DAILY [facility]; Protocol Cefazolin Sodium 1 gm/ Sodium (Chloride) 100 mls @ 100 mls/hr IVPB Q8 [facility]; Protocol Stop: 05/07/18 17:01 Last Admin: 05/06/18 08:00 Dose: 100 mls/hr Lactated Ringer's (Lactated Ringer's) 1,000 mls @ 100 mls/hr IV .Q10H [facility] Last Admin: 05/06/18 06:25 Dose: Not Given Lactated Ringer's (Lactated Ringer's) 1,000 mls @ 100 mls/hr IV .Q10H [facility] Last Admin: 05/06/18 06:37 Dose: Not Given Ketorolac Tromethamine (Toradol) 30 mg IVP Q6 PRN PRN Reason: Pain, moderate (4-7) Last Admin: 05/05/18 05:00 Dose: 30 mg Lorazepam (Ativan) 1 mg IVP ONCE PRN PRN Reason: Anxiety Last Admin: 05/04/18 14:25 Dose: 1 mg Ondansetron HCl (Zofran Inj) 4 mg IVP ONCE PRN PRN Reason: Nausea/Vomiting Oxycodone HCl (Oxycontin Extended Release Tab) 20 mg PO TID [facility] Oxycodone/Acetaminophen (Percocet 5/325 Mg Tab) 1 tab PO Q4 PRN PRN Reason: Pain, severe (8-10) Stop: 05/07/18 12:53 Last Admin: 05/06/18 01:52 Dose: 1 tab Oxycodone/Acetaminophen (Percocet 5/325 Mg Tab) 2 tab PO Q4 PRN PRN Reason: Pain, moderate (4-7) Stop: 05/08/18 10:15 Physical Exam - Constitutional Appears: No Acute Distress, Unkempt - Neurological Exam Additional comments: Back: limited ROM, c/d/i , mild lumbar paravertebral tenderness DP flex 5/5 bilateral LE, sensation grossly intact Results - Vital Signs Recent Vital Signs: Last Vital Signs Temp 97.9 F 05/06/18 08:14 Pulse 79 05/06/18 08:14 Resp 20 05/06/18 08:14 BP 138/77 05/06/18 08:14 Pulse Ox 97 05/06/18 08:14 - Labs Result Diagrams: 05/06/18 05:50 05/06/18 05:50 Labs: Laboratory Results - last 24 hr 05/06/18 05/06/18 05:50 05:50 WBC 6.4 D RBC 3.37 L Hgb 10.6 L Hct 31.8 L MCV 94.5 H MCH 31.6 H MCHC 33.5 RDW 14.3 Plt Count 179 Sodium 139 Potassium 4.0 Chloride 104 Carbon Dioxide 27 Anion Gap 12 BUN 9 Creatinine 0.7 L Est GFR ( Amer) > 60 Est GFR (Non-Af Amer) > 60 Random Glucose 98 Calcium 8.5 Assessment & Plan - Assessment and Plan (Free Text) Assessment: 47yM POD 1 lumbar laminectomy with acute on chronic back pain Plan: 1. PT 2. Please restart home pain meds 3. add dilaudid APPLICATION INTEGRATION ARCHITECT and wean as madelyn 4. gabapentin 100 mg po tid 5. Care as per primary team
[2018-05-06] MEDS: oxyCODONE 20 mg ER Tab (oxyCONTIN) PO SCH ×2 (12:47→17:04)
--- NOTE | 2018-05-06 14:20 | CP.PCM.PN ---
<Yehuda Lincoln - Last Filed: 05/06/18 14:20> Subjective - Date & Time of Evaluation Date of Evaluation: 05/06/18 Time of Evaluation: 08:00 - Subjective Subjective: No acute overnight events. Seen and evaluated at the bedside with Dr. Ponce. Complained of back pain minimally alleviated with Dilaudid. Pain Management consulted. Objective - Vital Signs/Intake and Output Vital Signs (last 24 hours): Temp Pulse Resp BP Pulse Ox 98.2 F 82 18 129/77 98 05/06/18 13:00 05/06/18 13:00 05/06/18 13:00 05/06/18 13:00 05/06/18 13:00 - Medications Medications: Current Medications Acetaminophen (Tylenol 325mg Tab) 650 mg PO Q6 PRN PRN Reason: Pain, Mild (1-3) Clonazepam (Klonopin) 2 mg PO Q12 [facility] Last Admin: 05/06/18 08:03 Dose: 2 mg Cyclobenzaprine HCl (Flexeril) 10 mg PO Q8 PRN PRN Reason: Muscle spasm Docusate Sodium (Colace) 100 mg PO BID [facility] Last Admin: 05/06/18 08:01 Dose: 100 mg Gabapentin (Neurontin) 100 mg PO TID [facility] Hydromorphone HCl (Dilaudid 0.2 Mg/Ml Operations Officer) 6 mg IV DAILY [facility]; Protocol Last Admin: 05/06/18 12:48 Dose: 6 mg Cefazolin Sodium 1 gm/ Sodium (Chloride) 100 mls @ 100 mls/hr IVPB Q8 [facility]; Protocol Stop: 05/07/18 17:01 Last Admin: 05/06/18 08:00 Dose: 100 mls/hr Lactated Ringer's (Lactated Ringer's) 1,000 mls @ 100 mls/hr IV .Q10H [facility] Last Admin: 05/06/18 06:25 Dose: Not Given Lactated Ringer's (Lactated Ringer's) 1,000 mls @ 100 mls/hr IV .Q10H [facility] Last Admin: 05/06/18 06:37 Dose: Not Given Ketorolac Tromethamine (Toradol) 30 mg IVP Q6 PRN PRN Reason: Pain, moderate (4-7) Last Admin: 05/05/18 05:00 Dose: 30 mg Lorazepam (Ativan) 1 mg IVP ONCE PRN PRN Reason: Anxiety Last Admin: 05/04/18 14:25 Dose: 1 mg Ondansetron HCl (Zofran Inj) 4 mg IVP ONCE PRN PRN Reason: Nausea/Vomiting Oxycodone HCl (Oxycontin Extended Release Tab) 20 mg PO TID [facility] Last Admin: 05/06/18 12:47 Dose: 20 mg Oxycodone/Acetaminophen (Percocet 5/325 Mg Tab) 1 tab PO Q4 PRN PRN Reason: Pain, severe (8-10) Stop: 05/07/18 12:53 Last Admin: 05/06/18 01:52 Dose: 1 tab Oxycodone/Acetaminophen (Percocet 5/325 Mg Tab) 2 tab PO Q4 PRN PRN Reason: Pain, moderate (4-7) Stop: 05/08/18 10:15 - Labs Labs: 05/06/18 05:50 05/06/18 05:50 PT 11.5 Seconds (9.8-13.1) 05/04/18 08:52 INR 1.0 05/04/18 08:52 APTT 32.5 Seconds (25.6-37.1) 05/04/18 08:52 - Constitutional Appears: No Acute Distress - Head Exam Head Exam: NORMAL INSPECTION - Eye Exam Eye Exam: Normal appearance - ENT Exam ENT Exam: Mucous Membranes Moist - Respiratory Exam Respiratory Exam: Clear to Ausculation Bilateral. absent: Rales, Wheezes - Cardiovascular Exam Cardiovascular Exam: REGULAR RHYTHM, +S1, +S2 - GI/Abdominal Exam Additional comments: Abdominal binder - Extremities Exam Extremities Exam: Normal Capillary Refill. absent: Calf Tenderness, Pedal Edema - Back Exam Additional comments: 2 J drains with serous sangineous blood - Neurological Exam Neurological Exam: Alert, Oriented x3 Neuro motor strength exam: Left Upper Extremity: 5, Right Upper Extremity: 5, Left Lower Extremity: 5, Right Lower Extremity: 5 Additional comments: Sensation in tact - Psychiatric Exam Psychiatric exam: Normal Affect - Skin Skin Exam: Normal Color Assessment and Plan - Assessment and Plan (Free Text) Assessment: Pt is a 47 y/o male with hx of spinal fractures presenting for intractable back pain, S/P laminectomy POD 1. Hemodynamically stable post operatively. Pain management consulted for better pain control F/U ortho's recommendations- monitor drains daily Discussed case with Dr. Ponce <Bronson Ponce - Last Filed: 05/06/18 17:00> Objective - Vital Signs/Intake and Output Vital Signs (last 24 hours): Temp Pulse Resp BP Pulse Ox 98.2 F 82 18 129/77 98 05/06/18 13:00 05/06/18 13:00 05/06/18 13:00 05/06/18 13:00 05/06/18 13:00 - Medications Medications: Current Medications Acetaminophen (Tylenol 325mg Tab) 650 mg PO Q6 PRN PRN Reason: Pain, Mild (1-3) Clonazepam (Klonopin) 2 mg PO Q12 [facility] Last Admin: 05/06/18 08:03 Dose: 2 mg Cyclobenzaprine HCl (Flexeril) 10 mg PO Q8 PRN PRN Reason: Muscle spasm Docusate Sodium (Colace) 100 mg PO BID [facility] Last Admin: 05/06/18 08:01 Dose: 100 mg Gabapentin (Neurontin) 100 mg PO TID [facility] Hydromorphone HCl (Dilaudid 0.2 Mg/Ml Operations Officer) 6 mg IV DAILY [facility]; Protocol Last Admin: 05/06/18 12:48 Dose: 6 mg Cefazolin Sodium 1 gm/ Sodium (Chloride) 100 mls @ 100 mls/hr IVPB Q8 [facility]; Protocol Stop: 05/07/18 17:01 Last Admin: 05/06/18 08:00 Dose: 100 mls/hr Lactated Ringer's (Lactated Ringer's) 1,000 mls @ 100 mls/hr IV .Q10H [facility] Last Admin: 05/06/18 06:25 Dose: Not Given Lactated Ringer's (Lactated Ringer's) 1,000 mls @ 100 mls/hr IV .Q10H [facility] Last Admin: 05/06/18 06:37 Dose: Not Given Ketorolac Tromethamine (Toradol) 30 mg IVP Q6 PRN PRN Reason: Pain, moderate (4-7) Last Admin: 05/05/18 05:00 Dose: 30 mg Lorazepam (Ativan) 1 mg IVP ONCE PRN PRN Reason: Anxiety Last Admin: 05/04/18 14:25 Dose: 1 mg Ondansetron HCl (Zofran Inj) 4 mg IVP ONCE PRN PRN Reason: Nausea/Vomiting Oxycodone HCl (Oxycontin Extended Release Tab) 20 mg PO TID [facility] Last Admin: 05/06/18 12:47 Dose: 20 mg Oxycodone/Acetaminophen (Percocet 5/325 Mg Tab) 1 tab PO Q4 PRN PRN Reason: Pain, severe (8-10) Stop: 05/07/18 12:53 Last Admin: 05/06/18 01:52 Dose: 1 tab Oxycodone/Acetaminophen (Percocet 5/325 Mg Tab) 2 tab PO Q4 PRN PRN Reason: Pain, moderate (4-7) Stop: 05/08/18 10:15 - Labs Labs: 05/06/18 05:50 05/06/18 05:50 PT 11.5 Seconds (9.8-13.1) 05/04/18 08:52 INR 1.0 05/04/18 08:52 APTT 32.5 Seconds (25.6-37.1) 05/04/18 08:52 Attending/Attestation - Attestation I have personally seen and examined this patient.: Yes I have fully participated in the care of the patient.: Yes I have reviewed all pertinent clinical information, including history, physical exam and plan: Yes
--- NOTE | 2018-05-06 15:10 | RAD ---
Date of service: 05/05/2018 PROCEDURE: Intraoperative fluoroscopic assistance HISTORY: L4-5 LAMINECTOMY W/FUSION COMPARISON: None TECHNIQUE: Total fluoroscopic time (continuous mode) utilized during the procedure 11.9 seconds. FINDINGS: Total exam DLP: 3.69 (mGy). IMPRESSION: Fluoroscopic assistance in excess of 1 hour.
[2018-05-07] MEDS: ceFAZolin 1 GM in Sodium Chloride 0.9% 100 ML IVPB SCH ×3 (01:27→17:11)
[2018-05-07] MEDS: Oxycodone/Acetaminophen 5/325 mg Tab PO PRN ×4 (02:33→19:49)
[2018-05-07 06:18] LABS: HEMOGLOBIN 11.1 g/dL (12.0-18.0); MEAN CELL VOLUME 92.7 fl (80.0-94.0); MEAN CORPUSCULAR HEMOGLOBIN 31.2 pg (27.0-31.0); MEAN CORPUSCULAR HGB CONC 33.6 g/dL (33.0-37.0); RBC 3.55 Mil/uL (4.40-5.90); RED CELL DISTRIBUTION WIDTH 14.1 % (11.5-14.5); WHITE BLOOD COUNT 6.5 K/uL (4.8-10.8)
[2018-05-07 07:11] LABS: BLOOD UREA NITROGEN 8 mg/dl (9-20); CALCIUM 8.7 mg/dL (8.4-10.2); GFR NON-AFRICAN AMERICAN > 60
[2018-05-07] MEDS: oxyCODONE 20 mg ER Tab (oxyCONTIN) PO SCH ×3 (09:07→17:08)
[2018-05-07] MEDS ORDERED: Oxycodone/Acetaminophen 5/325 mg Tab PO PRN (11:27)
--- NOTE | 2018-05-07 15:40 | CP.PCM.PN ---
Subjective - Date & Time of Evaluation Date of Evaluation: 05/07/18 Time of Evaluation: 15:38 - Subjective Subjective: Patient moaning in pain. Says he takes oxycontin "20s" at home and they work. Denies CP/SOB/dizziness. Objective - Vital Signs/Intake and Output Vital Signs (last 24 hours): Temp Pulse Resp BP Pulse Ox 98.7 F 75 20 104/61 100 05/07/18 08:35 05/07/18 08:35 05/07/18 08:35 05/07/18 08:35 05/07/18 08:35 - Medications Medications: Current Medications Acetaminophen (Tylenol 325mg Tab) 650 mg PO Q6 PRN PRN Reason: Pain, Mild (1-3) Clonazepam (Klonopin) 2 mg PO Q12 [facility] Last Admin: 05/07/18 09:07 Dose: 2 mg Cyclobenzaprine HCl (Flexeril) 10 mg PO Q8 PRN PRN Reason: Muscle spasm Docusate Sodium (Colace) 100 mg PO BID [facility] Last Admin: 05/07/18 09:08 Dose: 100 mg Gabapentin (Neurontin) 100 mg PO TID [facility] Last Admin: 05/07/18 12:47 Dose: 100 mg Cefazolin Sodium 1 gm/ Sodium (Chloride) 100 mls @ 100 mls/hr IVPB Q8 [facility]; Protocol Ketorolac Tromethamine (Toradol) 30 mg IVP Q6 [facility] Stop: 05/09/18 10:01 Ondansetron HCl (Zofran Inj) 4 mg IVP ONCE PRN PRN Reason: Nausea/Vomiting Oxycodone HCl (Oxycontin Extended Release Tab) 20 mg PO TID [facility] Last Admin: 05/07/18 12:45 Dose: 20 mg Oxycodone/Acetaminophen (Percocet 5/325 Mg Tab) 2 tab PO Q4 PRN PRN Reason: Pain, severe (8-10) Stop: 05/08/18 10:15 Last Admin: 05/07/18 15:37 Dose: 2 tab - Labs Labs: 05/07/18 05:55 05/07/18 05:55 PT 11.5 Seconds (9.8-13.1) 05/04/18 08:52 INR 1.0 05/04/18 08:52 APTT 32.5 Seconds (25.6-37.1) 05/04/18 08:52 - Back Exam Additional comments: L drain 60cc, R 15 approx 80/85 overnight, but some of the drainage leaked from ALICIA, so that is best estimate +ROM ankle/toes, sensation intact, calves soft NT neg homans Assessment and Plan (1) Lumbar spondylosis Assessment & Plan: POD#2 L4-S1 fusion drains left intact per Dr. Graham PT/OT will try toradol scheduled to help baseline pain VTE proph, encourage OOB d/w Dr. graham, agrees with above Status: Acute
--- NOTE | 2018-05-07 17:03 | CP.PCM.PN ---
<Yehuda Lincoln - Last Filed: 05/07/18 17:00> Subjective - Date & Time of Evaluation Date of Evaluation: 05/07/18 Time of Evaluation: 08:00 - Subjective Subjective: Pt seen and examined this morning with Dr. Ponce. Seen walking comfortably. Reports back pain but is partially controlled with the pain regimen. As per RN, he refused the Dilauded [employer] pump, though patient denies this. Otherwise does not endorse any complaints. ALICIA drains x2 noted with serousang ~50cc/40cc) Objective - Vital Signs/Intake and Output Vital Signs (last 24 hours): Temp Pulse Resp BP Pulse Ox 98.7 F 75 20 104/61 100 05/07/18 08:35 05/07/18 08:35 05/07/18 08:35 05/07/18 08:35 05/07/18 08:35 - Medications Medications: Current Medications Acetaminophen (Tylenol 325mg Tab) 650 mg PO Q6 PRN PRN Reason: Pain, Mild (1-3) Clonazepam (Klonopin) 2 mg PO Q12 [facility] Last Admin: 05/07/18 09:07 Dose: 2 mg Cyclobenzaprine HCl (Flexeril) 10 mg PO Q8 PRN PRN Reason: Muscle spasm Docusate Sodium (Colace) 100 mg PO BID [facility] Last Admin: 05/07/18 09:08 Dose: 100 mg Gabapentin (Neurontin) 100 mg PO TID [facility] Last Admin: 05/07/18 12:47 Dose: 100 mg Cefazolin Sodium 1 gm/ Sodium (Chloride) 100 mls @ 100 mls/hr IVPB Q8 [facility]; Protocol Ketorolac Tromethamine (Toradol) 30 mg IVP Q6 [facility] Stop: 05/09/18 10:01 Ondansetron HCl (Zofran Inj) 4 mg IVP ONCE PRN PRN Reason: Nausea/Vomiting Oxycodone HCl (Oxycontin Extended Release Tab) 20 mg PO TID [facility] Last Admin: 05/07/18 12:45 Dose: 20 mg Oxycodone/Acetaminophen (Percocet 5/325 Mg Tab) 2 tab PO Q4 PRN PRN Reason: Pain, severe (8-10) Stop: 05/08/18 10:15 Last Admin: 05/07/18 15:37 Dose: 2 tab - Labs Labs: 05/07/18 05:55 05/07/18 05:55 PT 11.5 Seconds (9.8-13.1) 05/04/18 08:52 INR 1.0 05/04/18 08:52 APTT 32.5 Seconds (25.6-37.1) 05/04/18 08:52 - Constitutional Appears: No Acute Distress - Head Exam Head Exam: NORMAL INSPECTION - Eye Exam Eye Exam: Normal appearance - ENT Exam ENT Exam: Mucous Membranes Moist - Neck Exam Neck Exam: absent: Meningismus - Respiratory Exam Respiratory Exam: Clear to Ausculation Bilateral - Cardiovascular Exam Cardiovascular Exam: REGULAR RHYTHM - GI/Abdominal Exam Additional comments: Abdominal binder in place - Neurological Exam Neurological Exam: Alert, Awake Neuro motor strength exam: Left Upper Extremity: 5, Right Upper Extremity: 5, Left Lower Extremity: 5, Right Lower Extremity: 5 Additional comments: Sensorium in tact, gait normal - Psychiatric Exam Psychiatric exam: Normal Affect - Skin Skin Exam: Normal Color Assessment and Plan - Assessment and Plan (Free Text) Assessment: Pt is a 47 y/o male with hx of spinal fractures presenting for intractable back pain, S/P laminectomy POD 2. Hemodynamically stable post operatively. Pain management consulted for better pain control- Dilauded [employer] with taper F/U ortho's recommendations- monitor drains daily Discussed case with Dr. Ponce <Bronson Ponce - Last Filed: 05/08/18 10:27> Objective - Vital Signs/Intake and Output Vital Signs (last 24 hours): Temp Pulse Resp BP Pulse Ox 97.8 F 64 20 91/56 L 97 05/08/18 07:53 05/08/18 07:53 05/08/18 07:53 05/08/18 07:53 05/08/18 07:53 Intake and Output: 05/08/18 05/08/18 06:59 18:59 Output Total 40 Balance -40 - Medications Medications: Current Medications Acetaminophen (Tylenol 325mg Tab) 650 mg PO Q6 PRN PRN Reason: Pain, Mild (1-3) Clonazepam (Klonopin) 2 mg PO Q12 [facility] Last Admin: 05/08/18 09:05 Dose: 2 mg Cyclobenzaprine HCl (Flexeril) 10 mg PO Q8 PRN PRN Reason: Muscle spasm Last Admin: 05/08/18 09:01 Dose: 10 mg Docusate Sodium (Colace) 100 mg PO BID [facility] Last Admin: 05/08/18 09:01 Dose: 100 mg Gabapentin (Neurontin) 100 mg PO TID [facility] Last Admin: 05/08/18 09:01 Dose: 100 mg Cefazolin Sodium 1 gm/ Sodium (Chloride) 100 mls @ 100 mls/hr IVPB Q8 [facility]; Protocol Last Admin: 05/08/18 09:01 Dose: 100 mls/hr Ketorolac Tromethamine (Toradol) 30 mg IVP Q6H [facility] Stop: 05/09/18 13:01 Last Admin: 05/08/18 06:51 Dose: 30 mg Ondansetron HCl (Zofran Inj) 4 mg IVP ONCE PRN PRN Reason: Nausea/Vomiting Oxycodone HCl (Oxycodone Immediate Release Tab) 20 mg PO Q8H [facility] Last Admin: 05/08/18 10:18 Dose: 20 mg - Labs Labs: 05/07/18 05:55 05/07/18 05:55 PT 11.5 Seconds (9.8-13.1) 05/04/18 08:52 INR 1.0 05/04/18 08:52 APTT 32.5 Seconds (25.6-37.1) 05/04/18 08:52 Attending/Attestation - Attestation I have personally seen and examined this patient.: Yes I have fully participated in the care of the patient.: Yes I have reviewed all pertinent clinical information, including history, physical exam and plan: Yes
[2018-05-07] MEDS ORDERED: Alum-Mag Hydrox-Simethicone Susp (30 mL) PO ONE (23:45)
[2018-05-08] MEDS: ceFAZolin 1 GM in Sodium Chloride 0.9% 100 ML IVPB SCH ×3 (00:06→17:03)
[2018-05-08] MEDS: Oxycodone/Acetaminophen 5/325 mg Tab PO PRN (03:25)
[2018-05-08] MEDS: oxyCODONE 20 mg ER Tab (oxyCONTIN) PO SCH (09:01)
[2018-05-08] MEDS: oxyCODONE 10 mg Immediate Release Tab PO SCH ×2 (10:18→17:01)
[2018-05-09] MEDS: oxyCODONE 10 mg Immediate Release Tab PO SCH ×3 (02:00→17:02)
[2018-05-10] MEDS ORDERED: oxyCODONE 10 mg Immediate Release Tab PO STA (00:37)
[2018-05-10] MEDS ORDERED: Oxycodone/Acetaminophen 5/325 mg Tab PO STA (05:07)
[2018-05-10] MEDS ORDERED: oxyCODONE 10 mg Immediate Release Tab PO SCH (09:00)
[2018-05-10 09:10] VITALS: BP 112/73; PULSE 64; RESP 20; TEMP 98.1; O2SAT 100
--- NOTE | 2018-05-10 13:38 | CP.PCM.PN ---
Subjective - Date & Time of Evaluation Date of Evaluation: 05/10/18 Time of Evaluation: 09:00 - Subjective Subjective: Patient saying he is going to pull drain out himself. Eating lollipop. Walking hallways. Objective - Vital Signs/Intake and Output Vital Signs (last 24 hours): Temp Pulse Resp BP Pulse Ox 98.1 F 64 20 112/73 100 05/10/18 09:00 05/10/18 09:00 05/10/18 09:00 05/10/18 09:00 05/10/18 09:00 Intake and Output: 05/10/18 05/10/18 06:59 18:59 Intake Total 0 Output Total 15 Balance -15 - Labs Labs: 05/07/18 05:55 05/07/18 05:55 PT 11.5 Seconds (9.8-13.1) 05/04/18 08:52 INR 1.0 05/04/18 08:52 APTT 32.5 Seconds (25.6-37.1) 05/04/18 08:52 - Back Exam Additional comments: drainage 03/05. JPs pulled. incision intact, no erythema. New dressing applied. Walking around no acute distress, complains of pain when going to sit down. Sensation intact BLE, calves soft NT neg homans +ROM great toe ext,ankle DF/PF knee 5/5 strength Assessment and Plan (1) Lumbar spondylosis Assessment & Plan: POD# 5 s/p L4-S1 fusion d/c home today f/u Dr. Saavedra 2 weeks call for appt keep incision site clean/dry/covered abd binder for comfort d/w Dr. Saavedra, agrees with above Status: Acute
== END 2018-05-10 10:55 | disposition home or self-care (01) | DRG 756 ==
LOC: H.ER 07:29 → SUPCPDRO 07:29 → H.ERHOLD 08:27 → H.MEDSURG1 10:32
PROVIDERS: ADMIT Family Medicine; ATTEND Family Medicine
PROC: 0SG30K1 Fusion of Lumbosacral Joint with Nonautologous Tissue Substitute, Posterior Approach, Posterior Column, Open Approach (ICD-10-PCS; principal; 2018-05-05 07:45)
DX: M47.816 Spondylosis without myelopathy or radiculopathy, lumbar region (principal); I10 Essential (primary) hypertension; I25.10 Atherosclerotic heart disease of native coronary artery without angina pectoris; F41.9 Anxiety disorder, unspecified; G89.29 Other chronic pain; M54.30 Sciatica, unspecified side; Z95.5 Presence of coronary angioplasty implant and graft; G89.18 Other acute postprocedural pain; Z87.891 Personal history of nicotine dependence